=== PATIENT | male | born 1975 | race Caucasian/White ===

== ENCOUNTER → 2020-05-19 | Outpatient (CLI) | payer OTHER ==
[~2020-05-19] MED LIST: AMLO-186 PO; FLUO40CA2 PO; GADOTERATE 7.5 MMOL/15ML VIAL. IVP ONE
--- NOTE | 2020-05-19 12:57 | KCIC ---
MRI BRAIN WO+W Date: 05/19/2020 10:20 AM Indication: MIGRAINE HEADACHES. More frequent migraines, visual changes and dizziness. Comparison: None. Technique: Multiplanar multisequence MRI of the brain was performed with and without intravenous cont rast using the standard protocol. 20 cc Clariscan contrast was administered intravenously during the exam. Findings: No acute infarct. No acute or chronic hemorrhage. The ventricles are normal in size and configuration without hydrocephalus. No abnormal enhancement. The scalp and calvarium are normal. The pituitary and sella are normal. No Chiari malformation. The v isualized upper cervical spine is normal. The visualized orbits and globes are normal. The visualized paranasal sinuses are clear. The mastoid air cells are clear. Normal flow voids within the vertebral, basilar, and internal carotid arteries indicating patency. IMPRESSION: 1. No acute infarct or hemorrhage. 2. No mass or abnormal enhancement. Electronically signed by: Erick Hutchins MD (05/19/2020 12:54 PM) [id number]
== END ==
LOC: KCIC MRI 09:52
PROVIDERS: ATTEND Family Medicine
DX: G43.909 Migraine, unspecified, not intractable, without status migrainosus (principal)
CPT/HCPCS: 70553; A9575